=== PATIENT | female | born 1980 | race Asian ===

== ENCOUNTER → 2016-09-15 | Outpatient (CLI) | payer OTHER ==
[2016-09-15 15:25] LABS: HEMOGLOBIN 12.7 g/dl (12.5-16.0); MEAN CELL VOLUME 86 fl (80.0-100.0); MEAN CORPUSCULAR HEMOGLOBIN 30 pg (27.0-31.0); MEAN CORPUSCULAR HGB CONC 35 g/dl (33.0-37.0); PLATELET COUNT 254 K/mm3 (130-400); RED BLOOD COUNT 4.24 M/mm3 (4.10-5.30); WHITE BLOOD COUNT 6.2 K/mm3 (4.8-10.8)
[2016-09-15 15:36] LABS: HEMATOCRIT 36.5 % (37.0-47.0)
[2016-09-15 15:39] LABS: ADJUSTED CALCIUM 8.9 mg/dL (8.4-10.2); ALBUMIN 4.6 gm/dL (3.5-5.0); BILIRUBIN,TOTAL 0.7 mg/dL (0.0-1.0); CALCIUM 9.4 mg/dL (8.4-10.2); CREATININE, serum 0.56 mg/dL (0.52-1.25); POTASSIUM 3.3 mmol/L (3.4-5.0); TOTAL PROTEIN 7.8 gm/dL (6.4-8.2)
[2016-09-15 16:08] LABS: THYROID STIMULATING HORMONE 0.552 uIU/mL (0.465-4.680)
== END ==
LOC: COL.LAB 14:35
DX: R63.4 Abnormal weight loss (principal); R42 Dizziness and giddiness

== ENCOUNTER → 2016-11-16 | Outpatient (CLI) | payer OTHER | LOC: COL.LAB 13:27 | DX: R51 Headache (principal); E86.0 Dehydration ==

== ENCOUNTER → 2017-12-06 | Outpatient (CLI) | payer SELFPAY ==
[2017-12-06 17:42] LABS: BASO % 0.8 % (0.0-2.0); EOS # 0.2 (0.0-0.7); EOS % 3.9 % (0-4.0); GRAN # 3.1 (1.4-6.5); GRAN % 58.2 % (42.2-75.2); HEMOGLOBIN 12.4 g/dl (12.5-16.0); LYMPH # 1.7 (1.2-3.4); LYMPH % 31.1 % (20.0-51.0); MEAN CELL VOLUME 86 fl (80.0-100.0); MEAN CORPUSCULAR HEMOGLOBIN 30 pg (27.0-31.0); MEAN CORPUSCULAR HGB CONC 35 g/dl (33.0-37.0); MEAN PLATELET VOLUME 10.8 fl (7.4-10.4); MONO # 0.3 (0.1-0.6); MONO % 5.8 % (1.7-9.3); PLATELET COUNT 294 K/mm3 (130-400); RED BLOOD COUNT 4.14 M/mm3 (4.10-5.30); REDCELL DISTRIBUTION WIDTH-CV 12.5 % (11.5-14.5)
[2017-12-06 17:43] LABS: ALBUMIN 4.2 gm/dL (3.5-5.0); BILIRUBIN,TOTAL 0.4 mg/dL (0.0-1.0); CALCIUM 9.3 mg/dL (8.4-10.2); CREATININE, serum 0.51 mg/dL (0.52-1.25); HEMATOCRIT 35.4 % (37.0-47.0); POTASSIUM 4.3 mmol/L (3.4-5.0); TOTAL PROTEIN 7.4 gm/dL (6.4-8.2)
[2017-12-06 18:13] LABS: THYROID STIMULATING HORMONE 0.669 uIU/mL (0.465-4.680)
== END ==
LOC: ZCOL.LAB 15:58
PROVIDERS: Nurse Practitioner Family
DX: R10.13 Epigastric pain (principal)

== ENCOUNTER → 2018-04-12 | Outpatient (CLI) | payer SELFPAY ==
[2018-04-12 18:03] LABS: THYROID STIMULATING HORMONE 0.814 uIU/mL (0.465-4.680)
== END ==
LOC: ZCOL.LAB 17:10
PROVIDERS: Pediatrics Adolescent Medicine
DX: R53.1 Weakness (principal); R25.1 Tremor, unspecified

== ENCOUNTER 2019-04-17 15:12 | Emergency (ER) | payer SELFPAY ==
[~2019-04-17] VITALS: Ht 162.6 cm; Wt 47.3 kg
[2019-04-17 15:16] VITALS: BP 137/74; TEMP 97.8
[2019-04-17] MEDS ORDERED: TAMIFLU 75MG75 MG PO (16:02)
[2019-04-17 16:18] VITALS: PULSE 91
== END 2019-04-17 16:18 | disposition home or self-care (01) ==
LOC: COL.ER 15:12
DX: J10.1 Influenza due to other identified influenza virus with other respiratory manifestations (principal)